=== PATIENT | male | born 1965 | race Caucasian/White ===

== ENCOUNTER 2023-04-17 09:28 | Emergency (ER) | payer MEDICARE, OTHER ==
[~2023-04-17] VITALS: Ht 177.8 cm; Wt 79.4 kg
[2023-04-17 10:18] LABS: Base Excess Venous 8.6 mmol/L; PCO2 Venous 42.3 mmHg (38-42); pH Blood Venous 7.49 (7.34-7.37)
[2023-04-17] MEDS ORDERED: HYDROCHLOROTH12.5 MG PO (10:23)
[2023-04-17 10:25] LABS: Source, Urine Clean Catch
[2023-04-17 10:28] LABS: BASOPHILS ABSOLUTE AUTO 0.01 K/mm3 (0.00-0.23); BASOPHILS PERCENT AUTO 0 % (0-2); EOSINOPHILS PERCENT AUTO 0 % (0-6); Hematocrit 44.2 % (37.0-53.0); Hemoglobin 16.3 g/dL (13.5-17.5); IMMATURE GRAN ABSOLUTE AUTO 0.04 K/mm3 (0.00-0.10); IMMATURE GRAN PERCENT AUTO 0 % (0-1); LYMPHOCYTES ABSOLUTE AUTO 1.14 K/mm3 (0.84-5.20); LYMPHOCYTES PERCENT AUTO 8 % (21-46); MONOCYTES ABSOLUTE AUTO 1.17 K/mm3 (0.16-1.47); MONOCYTES PERCENT AUTO 8 % (4-13); Mean Corpuscular HGB 31.9 pg (26.0-34.0); Mean Corpuscular HGB Conc 36.9 g/dL (31.5-36.5); Mean Corpuscular Volume 87 fL (80-100); Mean Platelet Volume 10.4 fL (9.1-12.4); NEUTROPHILS ABSOLUTE AUTO 11.89 K/mm3 (1.96-9.15); NEUTROPHILS PERCENT AUTO 83 % (41-73); Platelet Count 362 K/mm3 (150-400); RDW Standard Deviation 37.9 fL (35.1-46.3); Red Blood Cell Count 5.11 M/mm3 (4.30-5.90); White Blood Cell Count 14.25 K/mm3 (4.00-11.30)
[2023-04-17 10:29] LABS: Appearance, Urine Clear (Clear); Bilirubin, Urine Neg (Neg); Blood, Urine 1+ (Neg); Color, Urine Amber (P-Yellow); Glucose Qualitative, Urine 1+ (Neg); Ketones, Urine 1+ (Neg); Leukocyte Esterase, Urine 1+ (Neg); Nitrite, Urine Neg (Neg); Protein, Urine 2+ (Neg); Specific Gravity, Urine 1.015 (1.003-1.022); Urobilinogen, Urine 1+ (Normal)
[2023-04-17 10:36] LABS: Albumin, Blood 4.1 g/dL (3.4-5.0); Albumin/Globulin Ratio 1.1 (0.8-1.8); Bilirubin, Total 1.6 mg/dL (0.1-1.0); Bun/Creatinine Ratio 13.3 (12.0-20.0); Calcium, Blood 9.6 mg/dL (8.5-10.1); Creatinine, Blood 0.6 mg/dL (0.60-1.20); Globulin, Blood 3.7 g/dL (2.2-4.0); Potassium, Blood 1.9 mmol/L (3.5-5.5); Total Protein, Blood 7.8 g/dL (6.4-8.2)
[2023-04-17 10:37] LABS: Amorphous Light (0-Heavy); Bacteria Rare /hpf; Mucus Light (0-Heavy); Squamous Epithelial Cells Mod /hpf (Few)
[2023-04-17 12:30] VITALS: BP 139/67
[2023-04-17 15:10] LABS: Calcium, Ionized (POC) 1.06 mmol/L (1.10-1.46); Chloride (POC) 101 mmol/L (98-108); Creatinine (POC) 0.5 mg/dL (0.8-1.3); Glucose (ISTAT POC) 136 mg/dL (70-99); Hemoglobin (POC) 15.3 g/dL (13.5-17.5); Potassium (POC) 2.1 mmol/L (3.5-5.5); Sodium (POC) 143 mmol/L (135-148); Total CO2 (POC) 28 mmol/L (21-32)
[2023-04-18] MEDS ORDERED: CENTRUM SILVER1 EAC2 PO (14:35)
== END 2023-04-17 17:08 | disposition home or self-care (01) ==
LOC: ER 09:28
PROVIDERS: Student in an Organized Health Care Education/Training Program
DX: E87.6 Hypokalemia (principal); F41.9 Anxiety disorder, unspecified; R40.4 Transient alteration of awareness; F17.210 Nicotine dependence, cigarettes, uncomplicated
CPT/HCPCS: 70450; 71046; 80047; 80053; 81001; 82140; 82803; 83735; 85014; 85025; 93005; 93010; 96365; 96366; 96367; 96368; 99285-25; A9270; J3480; J7030; J7050

== ENCOUNTER 2023-04-18 11:29 | Observation (INO) | payer MEDICARE, OTHER ==
[~2023-04-18] VITALS: Ht 177.8 cm; Wt 80.0 kg
[~2023-04-18 11:29] MED LIST: HYDROCHLOROTH12.5 MG PO
[2023-04-18 12:18] LABS: Magnesium, Blood 2.1 mg/dL (1.6-2.4)
[2023-04-18 12:22] LABS: Bun/Creatinine Ratio 12.5 (12.0-20.0); Calcium, Blood 8.9 mg/dL (8.5-10.1); Creatinine, Blood 0.56 mg/dL (0.60-1.20); Potassium, Blood 1.9 mmol/L (3.5-5.5)
[2023-04-18] MEDS ORDERED: CENTRUM SILVER1 EAC2 PO (14:35)
[2023-04-18 14:36] VITALS: BP 120/61
--- NOTE | 2023-04-18 19:33 | NUR ---
PT ADMITTED TO FLOOR FROM ER BY [employer]MENT TENDER. PT ALERT, BUT ESCALATTED GREATLY WHEN LEFT. HISTORY OF TBI. K+ LOW. PT PULLED IV, SO I PLACED NEW ON LEFT ARM. HE ESCALATED AGAIN AND [employer] EQUIPMENT TENDER CALLED FOR VEST AND SOFT RESTRAINTS. ATTEMPTED TO KEEP CALM TO CONTINUE K+ RUNNING. PT EVENTUALLY PULLED THAT IV AND I PLACED ANOTHER IN RT ARM. HE CONTINUED TO ESCALATE. SECURITY CALLED WHEN HE PULLED IV, PULLED OFF RESTRAINTS. WE WERE ABLE TO PLACE IN BED AND SECURE, CAME TO ROOM AND ASKED WE REMOVE RESTRAINTS AND ALLOW HIM TO GO AMA. CALLED. TURNED ALL INFO TO MARIELA KENNEDY FOR AMA DISCHARGE
== END 2023-04-18 19:16 | disposition left against medical advice (07) ==
LOC: ER 11:29 → MEDS 11:30 → ER 14:24 → MEDS 14:30
PROVIDERS: Student in an Organized Health Care Education/Training Program; ADMIT Hospitalist
DX: E87.6 Hypokalemia (principal); E87.3 Alkalosis; D72.829 Elevated white blood cell count, unspecified; S06.9XAA Unspecified intracranial injury with loss of consciousness status unknown, initial encounter; F02.80 Dementia in other diseases classified elsewhere, unspecified severity, without behavioral disturbance, psychotic disturbance, mood disturbance, and anxiety; X58.XXXA Exposure to other specified factors, initial encounter; I10 Essential (primary) hypertension; F17.210 Nicotine dependence, cigarettes, uncomplicated; Z79.899 Other long term (current) drug therapy
CPT/HCPCS: 80048; 83735; 96361; 96374; 96376; 99283-25; A9270; G0378; J2060; J3480; J7030; J7050

== ENCOUNTER 2023-04-24 09:44 | Emergency (ER) | payer MEDICARE, OTHER ==
[~2023-04-24] VITALS: Ht 175.3 cm; Wt 113.4 kg
[~2023-04-24 09:44] MED LIST changes: +CENTRUM SILVER1 EAC2 PO
[2023-04-24 10:44] LABS: BASOPHILS ABSOLUTE AUTO 0.07 K/mm3 (0.00-0.23); BASOPHILS PERCENT AUTO 1 % (0-2); EOSINOPHILS ABSOLUTE AUTO 0.03 K/mm3 (0.00-0.68); EOSINOPHILS PERCENT AUTO 1 % (0-6); Hematocrit 40.7 % (37.0-53.0); Hemoglobin 14.5 g/dL (13.5-17.5); IMMATURE GRAN ABSOLUTE AUTO 0.03 K/mm3 (0.00-0.10); IMMATURE GRAN PERCENT AUTO 1 % (0-1); LYMPHOCYTES ABSOLUTE AUTO 0.93 K/mm3 (0.84-5.20); LYMPHOCYTES PERCENT AUTO 15 % (21-46); MONOCYTES ABSOLUTE AUTO 0.82 K/mm3 (0.16-1.47); MONOCYTES PERCENT AUTO 13 % (4-13); Mean Corpuscular HGB 32.2 pg (26.0-34.0); Mean Corpuscular HGB Conc 35.6 g/dL (31.5-36.5); Mean Corpuscular Volume 90 fL (80-100); Mean Platelet Volume 10.4 fL (9.1-12.4); NEUTROPHILS ABSOLUTE AUTO 4.32 K/mm3 (1.96-9.15); NEUTROPHILS PERCENT AUTO 70 % (41-73); Platelet Count 253 K/mm3 (150-400); RDW Coefficient Variation 12.8 % (11.7-14.2); RDW Standard Deviation 41.9 fL (35.1-46.3); Red Blood Cell Count 4.51 M/mm3 (4.30-5.90)
[2023-04-24 10:52] LABS: Base Excess Venous 3.6 mmol/L; PCO2 Venous 39.3 mmHg (38-42); pH Blood Venous 7.45 (7.34-7.37)
[2023-04-24 10:53] LABS: Bun/Creatinine Ratio 11.2 (12.0-20.0); Calcium, Blood 8.6 mg/dL (8.5-10.1); Creatinine, Blood 0.71 mg/dL (0.60-1.20); Magnesium, Blood 2.1 mg/dL (1.6-2.4); Potassium, Blood 2.5 mmol/L (3.5-5.5)
[2023-04-24] MEDS ORDERED: POTA10T PO (11:18)
[2023-04-24] MEDS ORDERED: SPIR25 PO (11:18)
[2023-04-24 11:24] LABS: Influenza A, PCR NEGATIVE (NEGATIVE); Influenza B, PCR NEGATIVE (NEGATIVE); Resp Syncytial Virus, PCR NEGATIVE (NEGATIVE)
[2023-04-24 11:36] LABS: SARS-Cov-2 (COVID-19) PCR, MMC POSITIVE (NEGATIVE)
[2023-04-24 15:45] VITALS: BP 144/87
== END 2023-04-24 15:58 | disposition home or self-care (01) ==
LOC: ER 09:44
PROVIDERS: Emergency Medicine
DX: U07.1 COVID-19 (principal); E87.6 Hypokalemia; I10 Essential (primary) hypertension; Z79.899 Other long term (current) drug therapy; F17.210 Nicotine dependence, cigarettes, uncomplicated
CPT/HCPCS: 0241U; 80048; 82803; 83735; 85025; 93005; 93010; 96365; 96366; 99283-25; A9270; J3480; J7030; J7050

== ENCOUNTER 2024-06-24 14:20 | Emergency (ER) | payer MEDICARE ==
[~2024-06-24] VITALS: Ht 177.8 cm; Wt 99.8 kg
[~2024-06-24 14:20] MED LIST changes: +POTA10T PO; +SPIR25 PO
[2024-06-24 15:15] LABS: BASOPHILS ABSOLUTE AUTO 0.05 K/mm3 (0.00-0.23); BASOPHILS PERCENT AUTO 1 % (0-2); EOSINOPHILS ABSOLUTE AUTO 0.05 K/mm3 (0.00-0.68); EOSINOPHILS PERCENT AUTO 1 % (0-6); Hematocrit 52.3 % (37.0-53.0); Hemoglobin 17.5 g/dL (13.5-17.5); IMMATURE GRAN ABSOLUTE AUTO 0.03 K/mm3 (0.00-0.10); IMMATURE GRAN PERCENT AUTO 1 % (0-1); LYMPHOCYTES ABSOLUTE AUTO 1.71 K/mm3 (0.84-5.20); LYMPHOCYTES PERCENT AUTO 29 % (21-46); MONOCYTES ABSOLUTE AUTO 0.26 K/mm3 (0.16-1.47); MONOCYTES PERCENT AUTO 4 % (4-13); Mean Corpuscular HGB 31.6 pg (26.0-34.0); Mean Corpuscular HGB Conc 33.5 g/dL (31.5-36.5); Mean Corpuscular Volume 94 fL (80-100); Mean Platelet Volume 9.4 fL (9.1-12.4); NEUTROPHILS ABSOLUTE AUTO 3.78 K/mm3 (1.96-9.15); NEUTROPHILS PERCENT AUTO 64 % (41-73); Platelet Count 231 K/mm3 (150-400); RDW Coefficient Variation 12.5 % (11.7-14.2); RDW Standard Deviation 43.5 fL (35.1-46.3); Red Blood Cell Count 5.54 M/mm3 (4.30-5.90); White Blood Cell Count 5.88 K/mm3 (4.00-11.30)
[2024-06-24 15:43] LABS: Albumin, Blood 3.9 g/dL (3.4-5.0); Albumin/Globulin Ratio 1.1 (0.8-1.8); Bilirubin, Total 0.8 mg/dL (0.1-1.0); Bun/Creatinine Ratio 4.7 (12.0-20.0); Calcium, Blood 8.5 mg/dL (8.5-10.1); Creatinine, Blood 0.64 mg/dL (0.60-1.20); Globulin, Blood 3.4 g/dL (2.2-4.0); Potassium, Blood 4.1 mmol/L (3.5-5.5); Total Protein, Blood 7.3 g/dL (6.4-8.2)
[2024-06-24] MEDS ORDERED: Haloperidol Lactate Inj. 5 MG/ML Injection ONE (16:18)
[2024-06-24] MEDS ORDERED: Haloperidol Lactate Inj. 5 MG/ML Injection IV ONE ×2 (16:25→18:15)
[2024-06-24] MEDS ORDERED: LORazepam 2 MG/ML 1ML Injection IV ONE ×3 (17:00→23:15)
[2024-06-24] MEDS ORDERED: LORazepam 2 MG/ML 1ML Injection ONE (22:51)
[2024-06-25 05:36] LABS: Source, Urine Foley catheter
[2024-06-25 05:38] LABS: Bilirubin, Urine Neg (Neg); Blood, Urine 1+ (Neg); Glucose Qualitative, Urine Neg (Neg); Ketones, Urine Neg (Neg); Leukocyte Esterase, Urine 1+ (Neg); Nitrite, Urine Neg (Neg); Protein, Urine 1+ (Neg); Urobilinogen, Urine NORM (Normal)
[2024-06-25 05:59] LABS: Appearance, Urine Hazy (Clear); Bacteria Few /hpf; Color, Urine Yellow (P-Yellow); Red Blood Cells, Urine 0-2 /hpf (0-2); Squamous Epithelial Cells Few /hpf (Few)
[2024-06-25 06:01] VITALS: BP 122/64
[2024-06-25] MEDS ORDERED: Nicotine 21 MG PATCH TOP ONE (09:30)
[2024-06-25] MEDS ORDERED: OLANZapine 10 MG Tab PO ONE (11:40)
== END 2024-06-25 13:20 | disposition home or self-care (01) ==
LOC: ER 14:20
PROVIDERS: Emergency Medicine
DX: F10.129 Alcohol abuse with intoxication, unspecified (principal); Y90.8 Blood alcohol level of 240 mg/100 ml or more; I10 Essential (primary) hypertension; Z87.820 Personal history of traumatic brain injury; Z79.899 Other long term (current) drug therapy
CPT/HCPCS: 51702; 80053; 80320; 81001; 83735; 85025; 87086; 96374-59; 96375-59; 96376-59; 99285-25; A9270; J1630; J2060